=== PATIENT | male | born 1945 | race Caucasian/White ===

== ENCOUNTER 2020-12-02 08:54 | Observation (INO) ==
[2020-12-02 10:42] LABS: Basophils # 0.1 10*3/uL (0.0-0.2); Basophils % 0.5 % (0.0-0.8); Eosinophils % 0.3 % (0.00-10.9); Hematocrit 41.5 VOL% (42.0-52.0); Hemoglobin 13.7 GM/DL (14.0-18.0); Immature Granulocytes % 0.5 %; Immature Granulocytes Absolute 0.06 #; Lymphocytes # 0.9 10*3/uL (1.4-4.0); Mean Corpuscular Volume 94.3 FL (87-102); Mean Platelet Volume 10.4 FL (9.6-12.0); Monocytes % 6.9 % (1.7-12.7); Neutrophils % 83.8 % (38.7-73.9); Platelet Count 247 T/CUMM (130-400); Red Cell Distribution Width 12.2 % (9.3-17.3); White Blood Count 11.4 T/CUMM (4-12)
[2020-12-02 10:51] LABS: Bilirubin,Urine Negative (Negative); Blood, Urine Moderate mg/dL (Negative); Glucose,Urine (UA) 50 mg/dL (Negative); Ketones,Urine Negative (Negative); Mucus,Urine Moderate /LPF (Occasional); Nitrite,Urine Negative (Negative); Protein,Urine 100 MG/DL; RBC,Urine 29712 /HPF (0-4); Urine Appearance CLOUDY (Clear); Urine Color Red (Yellow); Urine Specific Gravity 1.018 (1.001-1.035); Urine Urobilinogen < 2.0 EU/DL (0.2-1.0)
[2020-12-02 11:08] LABS: Albumin 3.7 G/DL (3.4-5.0); Bilirubin,Total 0.8 MG/DL (0.2-1.0); Osmolality,Calculated 282.5 MOS/KG (273-304); Potassium 3.6 MMOL/L (3.5-5.1); Total Protein 7.4 G/DL (6.4-8.2)
[2020-12-02 11:28] LABS: INR 1.1; PT Patient Result 12.5 SECS (10.5-12.0)
[2020-12-02] MEDS ORDERED: DEXTROSE 50% 25 GM/50 ML VIAL IV PRN (13:27)
[2020-12-02] MEDS ORDERED: GLUCAGON 1 MG VIAL IM PRN (13:27)
[2020-12-02] MEDS: ALBUTEROL 0.4 MG/ML 30 ML/BOTTLE PO SCH ×2 (17:15→21:38)
[2020-12-02] MEDS: SODIUM CHLORIDE 0.9% 1,000 ML IV SCH (18:00)
[2020-12-02] MEDS ORDERED: ALBUTEROL/IPRATROPIUM 3 ML NEB RESP TX PRN (19:00)
[2020-12-02] MEDS: INSULIN LISPRO 100 UNIT/ML SUBCUT SCH ×2 (19:14→21:38)
[2020-12-02 20:22] LABS: Hematocrit 34.2 VOL% (42.0-52.0); Hemoglobin 11.9 GM/DL (14.0-18.0)
[2020-12-02] MEDS ORDERED: ATORVASTATIN 80 MG TABLET PO SCH (21:00)
[2020-12-02] MEDS: BUDESONIDE/FORMOTEROL 160-4.5 INHALER 6 GM INH SCH (21:38)
[2020-12-03] MEDS: SODIUM CHLORIDE 0.9% 1,000 ML IV SCH ×2 (01:35→11:39)
[2020-12-03 05:42] LABS: Basophils # 0.1 10*3/uL (0.0-0.2); Basophils % 0.7 % (0.0-0.8); Eosinophils # 0.1 10*3/uL (0.0-0.87); Eosinophils % 1.7 % (0.00-10.9); Hematocrit 35.5 VOL% (42.0-52.0); Hemoglobin 12.2 GM/DL (14.0-18.0); Immature Granulocytes % 0.2 %; Immature Granulocytes Absolute 0.02 #; Lymphocytes # 1.5 10*3/uL (1.4-4.0); Lymphocytes % 18.8 % (21.2-54.2); Mean Corpuscular HGB Conc 34.4 GM/DL (32-36); Mean Corpuscular Volume 92.4 FL (87-102); Mean Platelet Volume 10.3 FL (9.6-12.0); Neutrophils % 68.6 % (38.7-73.9); Platelet Count 214 T/CUMM (130-400); Red Blood Count 3.84 MC/CUMM (3.8-5.5); Red Cell Distribution Width 12.1 % (9.3-17.3)
[2020-12-03 06:10] LABS: Albumin 2.8 G/DL (3.4-5.0); Bilirubin,Total 0.7 MG/DL (0.2-1.0); Calcium 8.3 MG/DL (8.5-10.1); Osmolality,Calculated 286.1 MOS/KG (273-304); Potassium 3.8 MMOL/L (3.5-5.1); Total Protein 6.1 G/DL (6.4-8.2)
[2020-12-03] MEDS ORDERED: POTASSIUM CHLORIDE 10 MEQ TABLET PO PRN (08:25)
[2020-12-03] MEDS ORDERED: IPRATROPIUM 500 MCG/2.5 ML NEB RESP TX PRN (08:25)
[2020-12-03] MEDS: INSULIN LISPRO 100 UNIT/ML SUBCUT SCH ×2 (08:37→12:51)
[2020-12-03] MEDS ORDERED: DILTIAZEM 30 MG TABLET PO SCH (09:00)
[2020-12-03] MEDS ORDERED: CITALOPRAM 20 MG TABLET PO SCH (09:00)
[2020-12-03] MEDS ORDERED: FINASTERIDE 5 MG TABLET PO SCH (09:00)
[2020-12-03] MEDS ORDERED: TAMSULOSIN 0.4 MG CAPSULE PO SCH (09:00)
[2020-12-03] MEDS ORDERED: MONTELUKAST 10 MG TABLET PO SCH (09:00)
[2020-12-03] MEDS ORDERED: CHOLECALCIFEROL 1,000 UNIT TABLET PO SCH (09:00)
[2020-12-03] MEDS ORDERED: MULTIVITAMIN (CENTRUM) TABLET PO SCH (09:00)
[2020-12-03] MEDS: BUDESONIDE/FORMOTEROL 160-4.5 INHALER 6 GM INH SCH (09:50)
[2020-12-03] MEDS: ALBUTEROL 0.4 MG/ML 30 ML/BOTTLE PO SCH (09:50)
[2020-12-03 13:38] VITALS: BP 129/58
[2020-12-03] MEDS ORDERED: THEOPHYLLINE ER 300 MG TABLET PO SCH (17:00)
[2020-12-03] MEDS ORDERED: EZETIMIBE 10 MG TABLET PO SCH (21:00)
== END 2020-12-03 13:49 | disposition home or self-care (01) ==
LOC: N.ED 08:54 → N.EDINP 08:54 → N.5E 15:32
PROVIDERS: ADMIT Internal Medicine; ATTEND Internal Medicine